=== PATIENT | male | born 1985 | race Caucasian/White ===

== ENCOUNTER → 2017-02-11 | Outpatient (CLI) | payer OTHER ==
[~2017-02-11] MED LIST: DESMOPRESSIN A0.2 M2 PO; KEFLEX500 MG PO; LAMOTRIGINE150 MG PO; LISINOPRIL10 MG PO; TRAZODONE HCL100 MG PO; WELLBUTRIN XL300 MG PO; XANAX1 MG PO
== END ==
LOC: RAD 07:19
DX: M25.561 Pain in right knee (principal); M25.562 Pain in left knee